=== PATIENT | male | born 1980 | race Two or more races ===

== ENCOUNTER 2021-04-25 19:56 | Emergency (ER) | payer OTHER ==
[~2021-04-25] VITALS: Ht 177.8 cm; Wt 81.6 kg
== END 2021-04-25 22:53 | disposition home or self-care (01) ==
LOC: ER 19:56
DX: R10.9 Unspecified abdominal pain (principal); Z03.818 Encounter for observation for suspected exposure to other biological agents ruled out

== ENCOUNTER 2023-12-19 07:45 | Outpatient (CLI) | payer OTHER | END 2023-12-19 07:56 | disposition home or self-care (01) | LOC: SONOGRAMA 07:45 | PROVIDERS: ATTEND Internal Medicine Gastroenterology | DX: R74.8 Abnormal levels of other serum enzymes (principal) ==

== ENCOUNTER 2023-12-31 01:03 | Emergency (ER) | payer OTHER ==
[~2023-12-31] VITALS: Ht 177.8 cm; Wt 87.1 kg
== END 2023-12-31 03:41 | disposition home or self-care (01) ==
LOC: ER 01:04
DX: S00.531A Contusion of lip, initial encounter (principal); W06.XXXA Fall from bed, initial encounter; Y93.89 Activity, other specified; Y92.013 Bedroom of single-family (private) house as the place of occurrence of the external cause

== ENCOUNTER 2025-05-19 12:11 | Outpatient (CLI) | payer OTHER | END 2025-05-19 12:13 | disposition home or self-care (01) | LOC: SONOGRAMA 12:11 | PROVIDERS: ATTEND General Practice | DX: D17.1 Benign lipomatous neoplasm of skin and subcutaneous tissue of trunk (principal); L03.313 Cellulitis of chest wall ==